=== PATIENT | female | born 1950 | race Asian ===

== ENCOUNTER 2023-03-05 22:03 | Emergency (ER) | payer OTHER, MEDICARE ==
[2023-03-05] MEDS ORDERED: ACETAMINOPHEN 325 MG TABLET (FP) ONE ×2 (22:35→23:41)
[2023-03-05 22:44] VITALS: BP 141/87; PULSE 109; RESP 20; BMI 20.5
[2023-03-05] MEDS ORDERED: ACETAMINOPHEN 325 MG TABLET (FP) PO ONE ×2 (22:50→23:40)
[2023-03-05 23:27] VITALS: TEMP 99.8
[2023-03-05] MEDS ORDERED: ONDANSETRON *ODT* 4 MG TABLET ONE (23:42)
[2023-03-05] MEDS ORDERED: ONDANSETRON *ODT* 4 MG TABLET SL ONE (23:42)
== END 2023-03-06 00:20 | disposition home or self-care (01) ==
LOC: FER 22:03
DX: U07.1 COVID-19 (principal); R50.9 Fever, unspecified; R05.9 Cough, unspecified; M79.10 Myalgia, unspecified site; R11.0 Nausea; R07.0 Pain in throat; R09.81 Nasal congestion; R19.7 Diarrhea, unspecified
CPT/HCPCS: 99283-25; Q0162

== ENCOUNTER 2025-04-20 08:43 | Day surgery (SDC) | payer OTHER, MEDICARE ==
[2025-04-15 15:03] VITALS: BMI 21.0
[2025-04-20] MEDS: CYCLOPENTOLATE 2% OPHTH SOLN 2 ML BOTTLE ONE (09:25)
[2025-04-20] MEDS: CIPROFLOXACIN 0.3% EYE DROPS 5 ML BOTTLE ONE (09:25)
[2025-04-20] MEDS: PHENYLEPHRINE 2.5% OPTHALMIC DROP 2ML BOTTLE ONE (09:25)
[2025-04-20] MEDS: TROPICAMIDE 1% OPHTH SOLN 15 ML BOTTLE ONE (09:25)
[2025-04-20] MEDS ORDERED: MIDAZOLAM HCL 2 MG/2 ML SINGLE DOSE VIAL ONE (10:21)
[2025-04-20] MEDS ORDERED: TETRACAINE 0.5% OPHTH SOLN 2 ML BOTTLE ONE (11:43)
[2025-04-20] MEDS ORDERED: LIDOCAINE 1% P/F 10 MG/ML VIAL ONE (11:43)
[2025-04-20] MEDS ORDERED: NEO/POLYMYX B SULF/DEXAMETH OPHTHALMIC 5ML BOTTLE ONE (11:43)
[2025-04-20] MEDS ORDERED: BSS (NA/CA/MG/K) BALANCED SALT SOLUTION OPHTH SOLN 15 ML BOTTLE ONE (11:43)
[2025-04-20 16:08] VITALS: BP 129/66; PULSE 59; RESP 18; TEMP 97.1
== END 2025-04-20 12:45 | disposition home or self-care (01) ==
LOC: FASU 08:43
PROVIDERS: ATTEND Ophthalmology
PROC: 08RK3JZ Replacement of Left Lens with Synthetic Substitute, Percutaneous Approach (ICD-10-PCS; principal; 2025-04-20 11:27)
DX: H26.8 Other specified cataract (principal)
CPT/HCPCS: 66984; V2632; 82962